=== PATIENT | female | born 1955 | race Caucasian/White ===

== ENCOUNTER 2017-03-20 02:35 | Emergency (ER) | payer MEDICARE, OTHER ==
[~2017-03-20 02:35] MED LIST: AUGMENTIN 500-1 EACH PO; GLUCOPHAGE1000 MG PO; TUMS200 MG PO; VITAMIN D50000 UNIT PO
== END 2017-03-20 04:47 | disposition left against medical advice (07) ==
LOC: ER1 02:35
DX: Z53.21 Procedure and treatment not carried out due to patient leaving prior to being seen by health care provider (principal)

== ENCOUNTER 2020-12-16 17:20 | Emergency (ER) | payer OTHER ==
[~2020-12-16 17:20] MED LIST changes: +ACIDOPHILUS MC; +ALDACTONE50 MG PO; +ALL DAY ALLERGY10 M2 PO; +AMBIEN10 MG PO; +AMLODIPINE BESY10 MG PO; +ANTI-DIARRHEAL2 M1 PO; +ASPIR 8181 MG PO; +AUGMENTIN 500-500 MG PO; +AUGMENTIN 875-1 EACH PO; +BENADRYL 25MG C25 MG PO; +BRILINTA 90 MG90 MG PO; +BUSPAR 15 MG; +CEFUROXIME500 MG PO; +CEPHALEXIN500 MG PO; +CHRONULAC20 GM/30 M PO; +COLACE 100MG C100 MG PO; +COLESTIPOL HCL1 GM PO; +COUMADIN3 MG PO; +COUMADIN4 MG PO; +CRESTOR10 MG PO; +ECOTRIN81 MG PO; +ELIQUIS5 MG PO; +FERROUS SULFAT325 M2 PO; +FLORASTOR250 MG PO; +FUROSEMIDE20 MG PO; +HUMALOG 10100 UNITS/ SC; +HUMALOG SC; +HYDRALAZINE HCL50 MG PO; +IMODIUM MULTI-1 EACH PO; +ISORDIL TAB 3030 MG PO; +KEFLEX CAP 500500 MG PO; +KEFLEX500 MG PO; +LANTUS100 UNIT/1 SQ; +LASIX40 MG PO; +LASIX80 MG PO; +LIPITOR40 MG PO; +METOPROLOL SUCC25 MG PO; +MONISTAT 7 CREA45 GM PV; +NEURONTIN 400400 MG PO; +NITROGLYCERIN0.4 MG SL; +NITROSTAT 0.40.4 MG SL; +NORCO 5-325 TA1 EACH PO; +NORCO 7.5-3251 EACH PO; +NORVASC10 MG PO; +NORVASC2.5 MG PO; +NOVOLOG100 UNIT/1 SQ; +NYSTATIN1 EAC5 TOP; +NYSTATIN60 GM TOP; +PAROXETINE HCL20 MG PO; +PAXIL 20 MG TAB20 MG PO; +PAXIL30 MG PO; +PAXIL40 MG PO; +PHENERGAN 25 MG25 M1 PO; +PLAQUENIL 200200 MG PO; +PLAVIX 75 MG TA75 MG PO; +PRINIVIL10 MG PO; +PRINIVIL20 MG PO; +PROTONIX40 MG PO; +QUESTRAN LIGHT 44 GM PO; +TOPROL XL25 MG PO; +TYLENOL 500 MG500 MG PO; +VIBRAMYCIN100 MG PO; +VITAMIN C500 M1 PO; +XARELTO20 MG PO; +ZANTAC150 MG PO; +ZOFRAN4 MG PO; +ZYLOPRIM 100 M100 MG PO
[2020-12-16 19:44] LABS: BUN/CREATININE RATIO 23 (0-10)
[2020-12-16 20:30] LABS: HEMOGLOBIN 10.6 gm/dl (12.3-15.3); RED BLOOD COUNT 4.35 M/UL (4.00-5.10); WHITE BLOOD COUNT 11.3 K/UL (4.5-11.0)
[2020-12-17] MEDS ORDERED: LASIX20 MG PO (00:14)
[2021-01-06] MEDS ORDERED: NORVASC10 MG PO (16:15)
[2021-01-06] MEDS ORDERED: CYCLOBENZAPRINE10 MG PO (16:16)
[2021-01-18] MEDS ORDERED: MYCOSTATIN CREA15 GM TOP (07:34)
[2021-01-18] MEDS ORDERED: HUMALOG100 UNIT/1 SQ (07:35)
== END 2020-12-17 00:39 | disposition home or self-care (01) ==
LOC: ER1 17:20
PROVIDERS: Physician Assistant
DX: J96.91 Respiratory failure, unspecified with hypoxia (principal); J90 Pleural effusion, not elsewhere classified; R07.9 Chest pain, unspecified; I25.2 Old myocardial infarction; E11.9 Type 2 diabetes mellitus without complications; Z87.01 Personal history of pneumonia (recurrent); Z86.73 Personal history of transient ischemic attack (TIA), and cerebral infarction without residual deficits; Z88.5 Allergy status to narcotic agent; Z88.1 Allergy status to other antibiotic agents; Z91.048 Other nonmedicinal substance allergy status; Z91.040 Latex allergy status; Z91.041 Radiographic dye allergy status; Z87.891 Personal history of nicotine dependence; Z20.822 Contact with and (suspected) exposure to COVID-19
CPT/HCPCS: 36600; 71250; 80053; 82550; 82553; 82803; 83605; 83874; 83880; 84484; 85025; 87040; 93005; 96374; 99285; J1642; J1940; U0002

== ENCOUNTER 2021-01-18 09:09 | Observation (INO) | payer OTHER ==
[~2021-01-18] VITALS: Ht 152.4 cm; Wt 63.1 kg
[~2021-01-18 09:09] MED LIST changes: +CYCLOBENZAPRINE10 MG PO; +HUMALOG100 UNIT/1 SQ; +LASIX20 MG PO; +MYCOSTATIN CREA15 GM TOP
[2021-01-18 10:12] LABS: HEMOGLOBIN 8.1 gm/dl (12.3-15.3); RED BLOOD COUNT 3.29 M/UL (4.00-5.10); WHITE BLOOD COUNT 9.5 K/UL (4.5-11.0)
[2021-01-18] MEDS ORDERED: DAILY VALUE1 EACH PO (16:16)
[2021-01-18] MEDS ORDERED: AMBIEN10 MG PO (16:16)
[2021-01-18] MEDS ORDERED: FERROUS SULFAT325 M2 PO (16:21)
[2021-01-18] MEDS ORDERED: HYDRALAZINE HCL25 MG PO (16:25)
[2021-01-18] MEDS ORDERED: LASIX40 MG PO (16:33)
[2021-01-18] MEDS ORDERED: VISTARIL 50 MG50 MG PO (17:09)
[2021-01-18] MEDS ORDERED: NEURONTIN400 MG PO (19:41)
[2021-01-18] MEDS ORDERED: VITAMIN D21250 MCG PO (21:02)
[2021-01-18] MEDS ORDERED: IMBRUVICA420 MG PO (21:04)
[2021-01-19 04:27] LABS: HEMOGLOBIN 7.6 gm/dl (12.3-15.3); WHITE BLOOD COUNT 8.3 K/UL (4.5-11.0)
[2021-01-20 03:12] LABS: HEMOGLOBIN 7.9 gm/dl (12.3-15.3); RED BLOOD COUNT 3.23 M/UL (4.00-5.10); WHITE BLOOD COUNT 9.4 K/UL (4.5-11.0)
[2021-01-20] MEDS ORDERED: LASIX40 MG PO (09:52)
[2021-01-20] MEDS ORDERED: NORVASC5 MG PO (10:28)
[2021-01-20] MEDS ORDERED: KLOR-CON 1010 MEQ PO (10:28)
[2021-01-20] MEDS ORDERED: HUMALOG 10100 UNITS/ SC (10:28)
[2021-01-20] MEDS ORDERED: LASIX TAB 20 MG20 MG PO ×2 (10:28→10:40)
[2021-01-20] MEDS ORDERED: HYDRALAZINE HCL50 MG PO (10:33)
== END 2021-01-20 14:00 | disposition home or self-care (01) ==
LOC: ER1 09:09 → MED SURG 4 14:11 → CDU 14:11 → MED SURG 4 15:23
PROVIDERS: Physician Assistant; ADMIT Internal Medicine
DX: I11.0 Hypertensive heart disease with heart failure (principal); I50.33 Acute on chronic diastolic (congestive) heart failure; I25.10 Atherosclerotic heart disease of native coronary artery without angina pectoris; D64.89 Other specified anemias; R77.8 Other specified abnormalities of plasma proteins; E11.51 Type 2 diabetes mellitus with diabetic peripheral angiopathy without gangrene; Z20.822 Contact with and (suspected) exposure to COVID-19; Z86.73 Personal history of transient ischemic attack (TIA), and cerebral infarction without residual deficits; Z89.612 Acquired absence of left leg above knee; Z88.5 Allergy status to narcotic agent; Z88.8 Allergy status to other drugs, medicaments and biological substances; Z91.040 Latex allergy status; Z91.041 Radiographic dye allergy status; Z91.048 Other nonmedicinal substance allergy status; Z79.4 Long term (current) use of insulin; Z79.899 Other long term (current) drug therapy; Z86.718 Personal history of other venous thrombosis and embolism; Z79.01 Long term (current) use of anticoagulants; Z95.5 Presence of coronary angioplasty implant and graft
CPT/HCPCS: ECHO; 36415; 70450; 71045; 71046; 80048; 80053; 81001; 82550; 82553; 82962; 83874; 83880; 84484; 85025; 87086; 93005; 93306; 96372; 96374; 96375; 96376; 99285; G0378; J0696; J1200; J1940; J2765; U0002

== ENCOUNTER → 2021-02-23 | Outpatient (CLI) | payer OTHER ==
[~2021-02-23] MED LIST changes: +CEPHALEXIN500 M1 PO; +DAILY VALUE1 EACH PO; +HYDRALAZINE HCL25 MG PO; +IMBRUVICA420 MG PO; +KLOR-CON 1010 MEQ PO; +LASIX TAB 20 MG20 MG PO; +NEURONTIN400 MG PO; +NORVASC5 MG PO; +VISTARIL 50 MG50 MG PO; +VITAMIN D21250 MCG PO
== END ==
LOC: CT 02-08 10:00
DX: R10.9 Unspecified abdominal pain (principal); R05 Cough; R59.0 Localized enlarged lymph nodes; J90 Pleural effusion, not elsewhere classified; J98.4 Other disorders of lung; K59.00 Constipation, unspecified
CPT/HCPCS: 71250

== ENCOUNTER → 2021-02-24 | Outpatient (CLI) | payer OTHER | LOC: MAMO 13:41 | DX: N64.59 Other signs and symptoms in breast (principal) | CPT/HCPCS: 76641-RT; 77066; G0279 ==

== ENCOUNTER 2021-04-12 09:06 | Emergency (ER) | payer OTHER ==
[~2021-04-12 09:06] MED LIST changes: -CEPHALEXIN500 M1 PO
[2021-04-12 11:53] LABS: HEMOGLOBIN 11.5 gm/dl (12.3-15.3); RED BLOOD COUNT 4.21 M/UL (4.00-5.10); WHITE BLOOD COUNT 10.7 K/UL (4.5-11.0)
[2021-04-12 12:36] LABS: BUN/CREATININE RATIO 23 (0-10)
[2021-04-12] MEDS ORDERED: HYDRALAZINE HCL50 MG PO (15:08)
[2021-04-12] MEDS ORDERED: CEPHALEXIN500 M1 PO (15:08)
== END 2021-04-12 15:25 | disposition home or self-care (01) ==
LOC: ER1 09:06
PROVIDERS: Physician Assistant
DX: R51.9 Headache, unspecified (principal); I10 Essential (primary) hypertension; N39.0 Urinary tract infection, site not specified; E11.9 Type 2 diabetes mellitus without complications; I25.2 Old myocardial infarction; F17.200 Nicotine dependence, unspecified, uncomplicated; Z86.73 Personal history of transient ischemic attack (TIA), and cerebral infarction without residual deficits
CPT/HCPCS: 70450; 71045; 80053; 81001; 82550; 82553; 83874; 84484; 84703; 85025; 93005; 96374; 96375; 99284; J1200; J1642; J2765

== ENCOUNTER 2021-04-19 07:32 | Emergency (ER) | payer OTHER ==
[~2021-04-19 07:32] MED LIST changes: +CEPHALEXIN500 M1 PO
[2021-04-19 08:53] LABS: HEMOGLOBIN 11.4 gm/dl (12.3-15.3); RED BLOOD COUNT 4.17 M/UL (4.00-5.10); WHITE BLOOD COUNT 10.1 K/UL (4.5-11.0)
== END 2021-04-19 10:50 | disposition home or self-care (01) ==
LOC: ER1 07:32
PROVIDERS: Physician Assistant
DX: R51.9 Headache, unspecified (principal); E11.9 Type 2 diabetes mellitus without complications; I25.2 Old myocardial infarction; Z88.6 Allergy status to analgesic agent; Z79.899 Other long term (current) drug therapy; Z87.891 Personal history of nicotine dependence
CPT/HCPCS: 70450; 70486; 80053; 85025; 96374; 96375; 96376; 99284; J2270; J2405

== ENCOUNTER → 2021-07-08 | Outpatient (CLI) | payer OTHER | LOC: HEART 5 11:51 | DX: R07.9 Chest pain, unspecified (principal); R00.2 Palpitations; R91.8 Other nonspecific abnormal finding of lung field | CPT/HCPCS: 71046 ==

== ENCOUNTER 2021-09-13 18:53 | Inpatient (IN) | payer OTHER ==
[~2021-09-13] VITALS: Ht 152.4 cm; Wt 74.4 kg
[~2021-09-13 18:53] MED LIST changes: +PAROXETINE HCL10 MG PO; -PAXIL 20 MG TAB20 MG PO
[2021-09-13 20:25] LABS: HEMOGLOBIN 8.2 gm/dl (12.3-15.3); RED BLOOD COUNT 3.14 M/UL (4.00-5.10); WHITE BLOOD COUNT 18.9 K/UL (4.5-11.0)
[2021-09-14 02:23] LABS: HEMOGLOBIN 7.8 gm/dl (12.3-15.3); RED BLOOD COUNT 2.98 M/UL (4.00-5.10); WHITE BLOOD COUNT 16.6 K/UL (4.5-11.0)
[2021-09-14 03:31] LABS: BUN/CREATININE RATIO 27 (0-10)
[2021-09-14] MEDS ORDERED: FUROSEMIDE40 MG PO (10:23)
[2021-09-14] MEDS ORDERED: FLONASE 0.05% N16 GM (10:23)
[2021-09-14] MEDS ORDERED: HYDROXYZINE PAM25 MG PO ×2 (10:24→10:25)
[2021-09-14] MEDS ORDERED: HYDROXYZINE HCL25 MG PO (10:26)
[2021-09-14] MEDS ORDERED: PROPRANOLOL HCL40 MG PO (10:28)
[2021-09-14] MEDS ORDERED: CLONIDINE HCL0.1 MG PO (10:28)
[2021-09-14] MEDS ORDERED: AMLODIPINE BESYL5 MG PO (10:29)
[2021-09-14] MEDS ORDERED: HYDRALAZINE HC100 MG PO (10:29)
[2021-09-14] MEDS ORDERED: NOVOLOG 10100 UNITS/ SQ (11:11)
--- NOTE | 2021-09-14 11:30 | NUR ---
09/14/[address] JANE NOTIFIED OF ADMIT, EXPLAINED MEDS WERE IN TO BE RE- CONCILED WELL.
[2021-09-15 02:51] LABS: HEMOGLOBIN 7.2 gm/dl (12.3-15.3); RED BLOOD COUNT 2.85 M/UL (4.00-5.10); WHITE BLOOD COUNT 14.4 K/UL (4.5-11.0)
[2021-09-16 07:35] LABS: HEMOGLOBIN 7.2 gm/dl (12.3-15.3); RED BLOOD COUNT 2.86 M/UL (4.00-5.10); WHITE BLOOD COUNT 13.1 K/UL (4.5-11.0)
[2021-09-17 07:20] LABS: HEMOGLOBIN 8.5 gm/dl (12.3-15.3)
[2021-09-17 07:27] LABS: RED BLOOD COUNT 3.33 M/UL (4.00-5.10)
[2021-09-17] MEDS ORDERED: NYSTOP60 GM TOP (09:00)
[2021-09-17] MEDS ORDERED: ATORVASTATIN CA20 MG PO (09:00)
[2021-09-17] MEDS ORDERED: GABAPENTIN100 MG PO (09:00)
[2021-09-17] MEDS ORDERED: FUROSEMIDE40 MG PO (09:00)
[2021-09-17] MEDS ORDERED: OMNICEF 300 MG300 MG PO (09:04)
[2021-09-17] MEDS ORDERED: DOXYCYCLINE HY100 MG PO (09:04)
[2021-09-17] MEDS ORDERED: AMLODIPINE BESYL5 MG PO (09:18)
== END 2021-09-17 15:00 | disposition home health service (06) | DRG 291 ==
LOC: ER1 18:53 → CDU 22:10 → PROG CARE 09-14 10:03 → M/S 09-14 15:30
PROVIDERS: Internal Medicine; Physician Assistant Medical; ADMIT Internal Medicine
PROC: B24BZZZ Ultrasonography of Heart with Aorta (ICD-10-PCS; principal; 2021-09-14)
DX: I11.0 Hypertensive heart disease with heart failure (principal); J18.9 Pneumonia, unspecified organism; I50.33 Acute on chronic diastolic (congestive) heart failure; J96.01 Acute respiratory failure with hypoxia; N17.9 Acute kidney failure, unspecified; I16.1 Hypertensive emergency; C91.10 Chronic lymphocytic leukemia of B-cell type not having achieved remission; Z66 Do not resuscitate; Z20.822 Contact with and (suspected) exposure to COVID-19; T50.2X5A Adverse effect of carbonic-anhydrase inhibitors, benzothiadiazides and other diuretics, initial encounter; I16.0 Hypertensive urgency; I73.9 Peripheral vascular disease, unspecified; E11.51 Type 2 diabetes mellitus with diabetic peripheral angiopathy without gangrene; D63.1 Anemia in chronic kidney disease; G89.29 Other chronic pain; E86.1 Hypovolemia; G47.33 Obstructive sleep apnea (adult) (pediatric); E11.40 Type 2 diabetes mellitus with diabetic neuropathy, unspecified; K21.9 Gastro-esophageal reflux disease without esophagitis; G43.909 Migraine, unspecified, not intractable, without status migrainosus; K90.0 Celiac disease; Z86.73 Personal history of transient ischemic attack (TIA), and cerebral infarction without residual deficits; Z79.02 Long term (current) use of antithrombotics/antiplatelets; Z79.4 Long term (current) use of insulin; Z90.710 Acquired absence of both cervix and uterus; Z89.612 Acquired absence of left leg above knee; Z79.01 Long term (current) use of anticoagulants; Z90.49 Acquired absence of other specified parts of digestive tract; Z98.49 Cataract extraction status, unspecified eye; Z90.89 Acquired absence of other organs; Z83.3 Family history of diabetes mellitus; Z82.49 Family history of ischemic heart disease and other diseases of the circulatory system; Z87.891 Personal history of nicotine dependence; Z68.30 Body mass index [BMI] 30.0-30.9, adult; Z88.8 Allergy status to other drugs, medicaments and biological substances; Z88.1 Allergy status to other antibiotic agents; Z91.041 Radiographic dye allergy status; Z91.040 Latex allergy status
CPT/HCPCS: 36415; 71045; 80048; 80053; 80061; 82550; 82553; 82962; 83735; 83874; 83880; 84100; 84484; 84550; 85025; 85027; 85610; 85652; 86140; 93005; 93308; 96374; 97161; 99285; J0696; J1940; J2405; J7030; Q0177; U0002

== ENCOUNTER 2021-09-23 13:10 | Inpatient (IN) | payer OTHER ==
[~2021-09-23] VITALS: Ht 152.4 cm; Wt 68.0 kg
[~2021-09-23 13:10] MED LIST changes: +AMLODIPINE BESYL5 MG PO; +ATORVASTATIN CA20 MG PO; +CLONIDINE HCL0.3 MG PO; -CYCLOBENZAPRINE10 MG PO; +DOXYCYCLINE HY100 MG PO; +FLONASE 0.05% N16 GM; +FLUCONAZOLE150 MG PO; +FUROSEMIDE40 MG PO; +GABAPENTIN100 MG PO; +HYDRALAZINE HC100 MG PO; +HYDROXYZINE HCL25 MG PO; +HYDROXYZINE PAM25 MG PO; +NOVOLOG 10100 UNITS/ SQ; +NYSTOP60 GM TOP; +OMNICEF 300 MG300 MG PO; +PROPRANOLOL HCL40 MG PO
[2021-09-23 14:44] LABS: HEMOGLOBIN 7.6 gm/dl (12.3-15.3); RED BLOOD COUNT 2.9 M/UL (4.00-5.10); WHITE BLOOD COUNT 12.4 K/UL (4.5-11.0)
[2021-09-23] MEDS ORDERED: CYCLOBENZAPRINE10 MG PO (16:16)
[2021-09-23] MEDS ORDERED: AMLODIPINE BESY10 MG PO (18:21)
[2021-09-23] MEDS ORDERED: FUROSEMIDE20 MG PO (18:24)
[2021-09-23] MEDS ORDERED: GABAPENTIN100 MG PO (18:26)
[2021-09-23] MEDS ORDERED: HYDROXYZINE HCL25 MG PO (18:33)
[2021-09-24 07:02] LABS: HEMOGLOBIN 7.3 gm/dl (12.3-15.3); RED BLOOD COUNT 3.01 M/UL (4.00-5.10); WHITE BLOOD COUNT 11.2 K/UL (4.5-11.0)
[2021-09-25 05:04] LABS: RED BLOOD COUNT 2.91 M/UL (4.00-5.10); WHITE BLOOD COUNT 10.6 K/UL (4.5-11.0)
[2021-09-26 07:38] LABS: HEMOGLOBIN 8.4 gm/dl (12.3-15.3); WHITE BLOOD COUNT 12.6 K/UL (4.5-11.0)
[2021-09-26 07:40] LABS: RED BLOOD COUNT 3.3 M/UL (4.00-5.10)
[2021-09-27 08:16] LABS: HEMOGLOBIN 9.1 gm/dl (12.3-15.3); RED BLOOD COUNT 3.41 M/UL (4.00-5.10); WHITE BLOOD COUNT 10.3 K/UL (4.5-11.0)
[2021-09-27] MEDS ORDERED: POTASSIUM CHLO10 MEQ PO (13:27)
[2021-09-27] MEDS ORDERED: FERROUS SULFAT325 M2 PO (13:27)
[2021-09-27] MEDS ORDERED: LASIX 40 MG TAB40 MG PO (13:27)
== END 2021-09-27 18:04 | disposition home or self-care (01) | DRG 291 ==
LOC: ER1 13:10 → CDU 15:37 → MED SURG 4 15:37
PROVIDERS: Physician Assistant; Preventive Medicine Occupational Medicine; ADMIT Internal Medicine
PROC: 30233N1 Transfusion of Nonautologous Red Blood Cells into Peripheral Vein, Percutaneous Approach (ICD-10-PCS; principal; 2021-09-25)
DX: I13.0 Hypertensive heart and chronic kidney disease with heart failure and stage 1 through stage 4 chronic kidney disease, or unspecified chronic kidney disease (principal); I50.33 Acute on chronic diastolic (congestive) heart failure; C91.10 Chronic lymphocytic leukemia of B-cell type not having achieved remission; Z20.822 Contact with and (suspected) exposure to COVID-19; N18.30 Chronic kidney disease, stage 3 unspecified; I25.10 Atherosclerotic heart disease of native coronary artery without angina pectoris; K90.0 Celiac disease; K21.9 Gastro-esophageal reflux disease without esophagitis; D64.81 Anemia due to antineoplastic chemotherapy; T45.1X5A Adverse effect of antineoplastic and immunosuppressive drugs, initial encounter; E11.51 Type 2 diabetes mellitus with diabetic peripheral angiopathy without gangrene; E83.42 Hypomagnesemia; D50.9 Iron deficiency anemia, unspecified; Z95.5 Presence of coronary angioplasty implant and graft; Z89.512 Acquired absence of left leg below knee; Z86.718 Personal history of other venous thrombosis and embolism; Z79.01 Long term (current) use of anticoagulants; Z82.49 Family history of ischemic heart disease and other diseases of the circulatory system; Z83.3 Family history of diabetes mellitus; Z88.8 Allergy status to other drugs, medicaments and biological substances; Z88.1 Allergy status to other antibiotic agents; Z91.041 Radiographic dye allergy status; Z91.040 Latex allergy status
CPT/HCPCS: 36415; 36430; 36600; 71045; 71046; 80048; 80053; 82550; 82553; 82607; 82728; 82746; 82803; 82962; 83036; 83540; 83550; 83605; 83690; 83735; 83874; 83880; 84100; 84439; 84443; 84484; 85025; 85027; 85652; 86140; 86850; 86900; 86901; 86920; 93005; 94664; 96374; 96375; 99285; C9113; J1205; J1756; J1940; J3475; J7030; P9040; U0002